=== PATIENT | female | born 1985 | race Native Hawaiian/Other Pacific Islander ===

== ENCOUNTER 2018-02-11 19:07 | Emergency (ER) | payer OTHER ==
[2018-02-11 19:11] VITALS: BP 125/85; PULSE 73; RESP 16; TEMP 98; O2SAT 98
[2018-02-11] MEDS ORDERED: Fluorescein 1 mg Ophthalmic Strip ONE (19:14)
[2018-02-11] MEDS ORDERED: Tetracaine 0.5% Ophth (OR ONLY) ONE (19:14)
--- NOTE | 2018-02-11 21:08 | CT ---
EXAM: CT Orbits Without Intravenous Contrast EXAM DATE/TIME: Exam ordered 02/11/2018 8:12 PM CLINICAL HISTORY: 32 years old, female; Pain; Eye pain; Left; Additional info: Left eye pain, possible fb TECHNIQUE: Axial computed tomography images of the orbits without intravenous contrast. All CT scans at this facility use one or more dose reduction techniques, viz.: automated exposure control; ma/kV adjustment per patient size (including targeted exams where dose is matched to indication; i.e. head); or iterative reconstruction technique. Coronal and sagittal reformatted images were created and reviewed. COMPARISON: No relevant prior studies available. FINDINGS: Orbits: Unremarkable. Sinuses: Mild mucosal thickening is noted in the maxillary sinuses bilaterally extending into the ethmoid air cells. No air-fluid levels. Bones/joints: No acute fracture. Soft tissues: Unremarkable. IMPRESSION: 1. No radiopaque foreign bodies noted. 2. Mild chronic sinusitis of the maxillary ethmoid air cells..
--- NOTE | 2018-02-11 21:29 | C.PDOC ---
History Of Present Illness 32 years old female presents to ED with complaints of eye pain. Patient states "a home piece of ceiling fell and something went in my eye". Denies any other physical complaints. Time Seen by Provider: 02/11/18 19:24 Chief Complaint (Nursing): Eye Problem History Per: Patient History/Exam Limitations: no limitations Onset/Duration Of Symptoms: Hrs Current Symptoms Are (Timing): Still Present Injury To Eye?: Yes Associated Symptoms: Pain, FB Sensation Recent travel outside of the [place]: No Past Medical History Reviewed: Historical Data, Nursing Documentation, Vital Signs Vital Signs: Last Vital Signs Temp 98 F 02/11/18 19:09 Pulse 73 02/11/18 19:09 Resp 16 02/11/18 19:09 BP 125/85 02/11/18 19:09 Pulse Ox 98 02/12/18 03:52 - Medical History PMH: No Chronic Diseases Surgical History: No Surg Hx Family History: States: No Known Family Hx - Social History Hx Alcohol Use: No Hx Substance Use: No - Immunization History Hx Tetanus Toxoid Vaccination: No Hx Influenza Vaccination: No Hx Pneumococcal Vaccination: No Review Of Systems Constitutional: Negative for: Fever, Chills Eyes: Positive for: Pain. Negative for: Vision Change Gastrointestinal: Negative for: Nausea, Vomiting, Abdominal Pain, Diarrhea Skin: Negative for: Rash Neurological: Negative for: Weakness, Numbness Physical Exam - Physical Exam Appears: Non-toxic, No Acute Distress Skin: Warm, Dry Head: Atraumatic, Normacephalic Eye(s): bilateral: Other (Not able to perform visual acuity test because of discomfort; Mild erythema to conjunctival; No foreign body or corneal abrasion seen. ) Oral Mucosa: Moist Cardiovascular: Rhythm Regular ED Course And Treatment O2 Sat by Pulse Oximetry: 98 (RA) Pulse Ox Interpretation: Normal - CT Scan/US CT orbits Other Rad Studies (CT/US): Read By Radiologist, Radiology Report Reviewed CT/US Interpretation: EXAM: CT Orbits Without Intravenous Contrast. EXAM DATE/ TIME: Exam ordered 02/11/2018 8:12 PM. CLINICAL HISTORY: 32 years old, female ; Pain; Eye pain; Left; Additional info: Left eye pain, possible fb. TECHNIQUE : Axial computed tomography images of the orbits without intravenous contrast. All CT scans at this. facility use one or more dose reduction techniques, viz. : automated exposure control; ma/kV. adjustment per patient size (including targeted exams where dose is matched to indication; i.e. head);. or iterative reconstruction technique. Coronal and sagittal reformatted images were created and reviewed. COMPARISON: No relevant prior studies available. FINDINGS: Orbits: Unremarkable. Sinuses: Mild mucosal thickening is noted in the maxillary sinuses bilaterally extending into the. ethmoid air cells. No air- fluid levels. Bones/joints: No acute fracture. Soft tissues: Unremarkable. IMPRESSION: 1. No radiopaque foreign bodies noted. 2. Mild chronic sinusitis of the maxillary ethmoid air cells.. Thank you for allowing us to participate in the care of your patient. Dictated and Authenticated by: Gardenia Jarrett MD. 02/11/2018 9:08 PM Eastern Time ([place] & [place]) Progress Note: Administered Ciloxan. Ordered CT orbits/facials and urine test. Disposition - Disposition Referrals: Noam Mart [Staff Provider] - Disposition: HOME/ ROUTINE Disposition Time: 21:53 Condition: STABLE Additional Instructions: Follow up with Events Specialist within 1-2 days. Return to ED if feel worse. 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 - Scribe Statement The provider has reviewed the documentation as recorded by the Scribe Marlon Cabrera All medical record entries made by the Scribe were at my direction and personally dictated by me. I have reviewed the chart and agree that the record accurately reflects my personal performance of the history, physical exam, medical decision making, and the department course for this patient. I have also personally directed, reviewed, and agree with the discharge instructions and disposition.
[2018-02-11] MEDS ORDERED: Ciprofloxacin 0.3% OPTH SOLN OS STA (21:33)
[2018-02-11] MEDS ORDERED: Ciprofloxacin 0.3% OPTH SOLN ONE (21:55)
== END 2018-02-11 22:01 | disposition home or self-care (01) ==
LOC: C.ER 19:07 → EDBD 19:07 → C.ER 22:01
DX: H57.10 Ocular pain, unspecified eye (principal)